=== PATIENT | female | born 1995 | race Caucasian/White ===

== ENCOUNTER 2024-12-12 06:32 | Day surgery (SDC) | payer BC, SELFPAY ==
[2024-12-12 12:11] LABS: HCG, Urine Qualitative Screen Negative
== END 2024-12-12 13:12 | disposition home or self-care (01) ==
LOC: GI 06:32
PROVIDERS: ATTENDING PHYSICIAN Internal Medicine Gastroenterology
DX: K90.0 Celiac disease (principal); K44.9 Diaphragmatic hernia without obstruction or gangrene; E53.8 Deficiency of other specified B group vitamins
CPT/HCPCS: 43239; 81025; 88305